=== PATIENT | female | born 1960 | race Caucasian/White ===

== ENCOUNTER 2017-08-08 19:03 | Emergency (ER) | payer MEDICARE, MEDICAID ==
[2017-08-08] MEDS ORDERED: Albuterol/Ipratropium Neb 3 ML AERS HHN ONE ×2 (21:15→21:57)
--- NOTE | 2017-08-08 21:57 | ED Physician Chart ---
ED Chief Complaint/HPI - Patient Information Date Seen:: 08/08/17 Time Seen:: 21:57 Chief Complaint:: cough History of Present Illness:: 57 yo female had cough, SOB and sore throat for 1 day. She denied any fever or chills. Allergies:: Allergies Allergy/AdvReac Type Severity Reaction Status Date / Time erythomycin Allergy Uncoded 04/23/12 20:22 Vitals:: Vital Signs - 8 hr 08/08/17 08/08/17 20:45 21:23 Temp 97.6 F HR 81 81 RR 18 22 BP 119/81 O2 Sat % 97 95 ED Review of Systems - Review of Systems General/Constitutional: No fever, No chills Skin: No rash Head: No headache Eyes: No pain ENT: No earache, Sore throat Neck: No neck pain Cardio Vascular: No chest pain Pulmonary: SOB, Cough GI: No nausea, No vomiting Musculoskeletal: No bone or joint pain ED Past Medical History - Past Medical History Past Medical History: CAD ([place]), Other (fibromyalgia) Social History: Smoker, No Alcohol, No Drug Use Surgical History: None Family Medical History - Family Member Mother History Unknown: Yes ED Physical Exam - Physical Examination General/Constitutional: Awake Head: Atraumatic Eyes: PERRL Skin: No skin lesions ENMT: Nasal exam nl Neck: No nuchal rigidity Other Respiratory comments:: mild wheeze and ronchi Cardio Vascular: RRR, No murmur, gallop, rubs, NL S1 S2 GI: No tenderness/rebounding/guarding Extremities: normal strength in all extremities Neuro/Psych: No focal deficits ED Labs/Radiology/EKG Results - Radiology Results Results: CXR: No consolidation ED Assessment - Assessment General Assessment: Bronchitis Assessment/Comments:: DuoNeb Azithromycin 500mg PO x 1 D/c home Azithromycin 250mg PO qd x 4 days Robitussin DM 10mg q6h f/u PCP or return to ER if symptoms worsen ED Septic Shock - . Is Septic Shock (SBP<90, OR Lactate>4 mmol\L) present?: No - <6hrs of presentation: Vital Signs: Vital Signs - 8 hr 08/08/17 08/08/17 20:45 21:23 Temp 97.6 F HR 81 81 RR 18 22 BP 119/81 O2 Sat % 97 95 ED Reassessment (Disposition) - Reassessment Reassessment Condition:: Improved - Patient Disposition Discharge/Transfer:: Home ED Discharge Plan - Patient Disposition Admit/Discharge/Transfer: PT DISCHARGED HOME Prescriptions: Azithromycin [Zithromax] 250 mg PO DAILY #6 tab Guaifenesin DM [Robitussin DM] 10 ml PO Q4H PRN #120 ml PRN Reason: Cough Instructions: Bronchitis, [id number] Additional Instructions: follow up with your primary medical doctor SOTO take prescribed medications as ordered
[2017-08-08 22:13] LABS: % EOSINOPHILS 3.1 % (0.0-5.0); % LYMPHOCYTES 24.5 % (20.0-50.0); % MONOCYTES 7.4 % (2.0-10.0); EOSINOPHILE ABSOLUTE 0.2 Th/cmm (0.1-0.4); HEMOGLOBIN 13.4 gm/dL (12-16); LYMPHOCYTE ABSOLUTE 1.3 Th/cmm (1.5-3.0); MEAN CORPUSCULAR HEMOGLOBIN 32.3 pg (27.0-31.0); MEAN CORPUSCULAR HGB CONC 34.4 pg (28.0-36.0); MEAN PLATELET VOLUME 8.6 fl; MONOCYTE ABSOLUTE 0.4 Th/cmm (0.3-1.0); NEUTROPHILE ABSOLUTE 3.3 Th/cmm (1.8-8.0); PLATELET COUNT 253 Th/cmm (150-400); RED BLOOD COUNT 4.15 Mil/cmm (3.80-5.10); RED CELL DISTRIBUTION WIDTH 12.7 % (11.5-20.0); WHITE BLOOD COUNT 5.2 Th/cmm (4.8-10.8)
[2017-08-08 22:33] LABS: ALB/GLOB RATIO 1.7 (1.0-1.8); ALKALINE PHOSPHATASE 91 U/L (34-104); BILIRUBIN,TOTAL 0.3 mg/dL (0.3-1.0); BUN - UREA NITROGEN 12 mg/dL (7-25); CARBON DIOXIDE 23.6 mEq/L (21.0-31.0); CHLORIDE 102 mEq/L (98-107); CREATININE - SERUM 0.7 mg/dL (0.6-1.2); GFR AFRICAN-AMERICAN > 60.0 ml/min (>90); GFR NON AFRICAN-AMERICAN > 60.0 ml/min; GLUCOSE 148 mg/dL (70-105); POTASSIUM SERUM 3.6 mEq/L (3.5-5.1); SGOT 17 U/L (13-39); SGPT/ALT 15 U/L (7-52); SODIUM SERUM 134 mEq/L (136-145); TOTAL PROTEIN,SERUM 6.3 gm/dL (6.0-8.3)
[2017-08-08] MEDS ORDERED: Guaifenesin DM 10 ML UDC PO PRN (23:22)
[2017-08-08 23:24] LABS: URINE MICROSCOPIC INDICATED? YES; URINE SOURCE RANDOM
[2017-08-08 23:27] LABS: URINE BILIRUBIN NEGATIVE (NEGATIVE); URINE BLOOD SMALL (NEGATIVE); URINE CLARITY CLEAR (CLEAR); URINE COLOR YELLOW; URINE GLUCOSE (UA) NEGATIVE (NEGATIVE); URINE KETONE NEGATIVE (NEGATIVE); URINE LEUKOCYTE ESTERASE NEGATIVE (NEGATIVE); URINE NITRATE NEGATIVE (NEGATIVE); URINE PH 6.5 (4.6 - 8.0); URINE PROTEIN NEGATIVE (NEGATIVE); URINE UROBILINOGEN 0.2 E.U./dL (0.2 - 1.0)
[2017-08-08 23:52] LABS: URINE BACTERIA FEW /hpf (NONE SEEN); URINE EPITHELIAL CELLS FEW /lpf (FEW); URINE WBC 0-2 /hpf (0-5)
--- NOTE | 2017-08-09 09:01 | Diagnostic Imaging Report ---
Portable chest x-ray HISTORY: Cough The overall heart size appears normal. There is a 1.0 cm calcified nodule within the right lower lobe consistent with old granulomatous disease. No acute processes. No hilar or mediastinal abnormalities. IMPRESSION: 1. No acute abnormalities 2. Calcified nodule right lower lobe consistent with old granulomatous disease
== END 2017-08-08 23:30 | disposition home or self-care (01) ==
LOC: ER 19:03
DX: J20.9 Acute bronchitis, unspecified (principal); I25.10 Atherosclerotic heart disease of native coronary artery without angina pectoris; F17.200 Nicotine dependence, unspecified, uncomplicated
CPT/HCPCS: 36415-UA; 71010-TC; 80053-TC; 81001-TC; 85025-TC; 94640

== ENCOUNTER 2018-01-03 14:34 | Emergency (ER) | payer MEDICARE, MEDICAID ==
--- NOTE | 2018-01-03 17:58 | ED Physician Chart ---
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 WHO WOKE UP AT 1 AM WITH THE HEADACHE NO NUMBNES OR TINGLING AND TOK MOTRIN WITH SOME RELIEF AND SIMILAR TO HIS USUAL HEADACHE Allergies:: Allergies Allergy/AdvReac Type Severity Reaction Status Date / Time erythomycin Allergy Uncoded 04/23/12 20:22 Vitals:: Vital Signs - 8 hr 01/03/18 16:24 Temp 97.2 F HR 76 RR 18 BP 157/63 O2 Sat % 97 Historian:: Patient ED Review of Systems - Review of Systems General/Constitutional: No fever Skin: No skin lesions Head: Headache Eyes: No loss of vision ENT: No earache Neck: No neck pain Cardio Vascular: No chest pain Pulmonary: No SOB GI: No pain 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 Musculoskeletal: No bone or joint pain Endocrine: No polyuria Psychiatric: No prior psych history Hematopoietic: No bruising Allergic/Immuno: No urticaria Neurological: No syncope ED Past Medical History - Past Medical History Past Medical History: Asthma/COPD, Other (FIBROMYALGIA DEPRESION MIGRAINES [place]) Family History: HTN Social History: Smoker, Alcohol Surgical History: Hysterectomy Psychiatricy History: None Family Medical History - Family Member Mother History Unknown: Yes ED Physical Exam - Physical Examination General/Constitutional: Well-developed, well-nourished Head: Atraumatic Eyes: Lids, conjuctiva normal Skin: Nl inspection ENMT: External ears, nose nl Neck: Nontender, Full ROM w/o pain Respiratory: Nl effort/Exclusion Cardio Vascular: No murmur, gallop, rubs GI: No organomegaly : No CVA tenderness Extremities: No tenderness or effusion Neuro/Psych: Alert/oriented Misc: Normal back ED Assessment - Assessment General Assessment: HEADACHE R/O MIGRAINES ED Septic Shock - . Is Septic Shock (SBP<90, OR Lactate>4 mmol\L) present?: No - <6hrs of presentation: Vital Signs: Vital Signs - 8 hr 01/03/18 16:24 Temp 97.2 F HR 76 RR 18 BP 157/63 O2 Sat % 97 ED Reassessment (Disposition) - Reassessment Reassessment:: HEADACHE R/O MIGRAINES Reassessment Condition:: Improved - Patient Disposition Discharge/Transfer:: Home
--- NOTE | 2018-01-04 09:09 | Diagnostic Imaging Report ---
CT scan of the brain without contrast History: Headache Total DLP equals 684 CTDI equals 36.7 Axial sections were obtained from the base of the skull to the vertex. There is a normal ventricular system size. No focal parenchymal lesions are seen. No evidence of any mass effect or shift of midline structures. No extra-axial masses or abnormal fluid collections. Impression: No acute abnormalities
== END 2018-01-03 20:55 | disposition home or self-care (01) ==
LOC: ER 14:34
DX: G43.909 Migraine, unspecified, not intractable, without status migrainosus (principal); J44.9 Chronic obstructive pulmonary disease, unspecified; J45.909 Unspecified asthma, uncomplicated; F17.200 Nicotine dependence, unspecified, uncomplicated; Z90.710 Acquired absence of both cervix and uterus; Z88.1 Allergy status to other antibiotic agents
CPT/HCPCS: 70450-TC; Z7502